=== PATIENT | female | born 2005 | race Two or more races ===

== ENCOUNTER 2024-05-02 00:11 | Emergency (ER) | payer MEDICAID, SELFPAY ==
[2024-05-02 00:12] VITALS: BMI 27.4
[2024-05-02 00:18] VITALS: BP 125/78; PULSE 91; RESP 18; TEMP 37; O2SAT 99
--- NOTE | 2024-05-02 00:26 | XR_ITS ---
Examination: Pelvic ultrasound, transabdominal, complete Technique: Transabdominal ultrasound of the pelvis performed using grayscale imaging Date and time of exam: May 02, 2024 at 0128 hrs. Indications: Onset pelvic pain beginning 2 years ago Findings: Uterus 7.4 cm Endometrial 12 mm No uterine mass or intrauterine gestation Right ovary 2.6 cm arterial flow Left ovary 2.5 cm arterial flow Impression: No uterine mass Negative for ovarian torsion
--- NOTE | 2024-05-02 00:27 | PD.EDRME ---
Rapid Medical Screening Exam RME Arrival date/time: 05/02/24 00:11 18-year-old female presents emergency department complaining of left-sided pelvic pain. Chief Complaint: Abdominal Pain Time Seen by Provider: 05/02/24 00:15 Vital signs: Vital Signs Temperature 98.6 F 05/02/24 00:18 Pulse Rate 91 05/02/24 00:18 Respiratory Rate 18 05/02/24 00:18 Blood Pressure 125/78 05/02/24 00:18 Pulse Oximetry (%) 99 05/02/24 00:18 Oxygen Delivery Method Room Air 05/02/24 00:18 Vital signs reviewed by provider: Yes
[2024-05-02 00:42] LABS: Collection Type, Urine Clean Catch
[2024-05-02 00:55] LABS: Bilirubin,Urine Negative (Negative); Blood,Urine 3+ (Negative); Clarity,Urine Turbid (Clear/Hazy); Color,Urine Yellow (Lt Yel-Yel); Culture Indicated,Urine Yes; Glucose, Urine Negative (Negative); Hyaline Casts,Urine < 1 /hpf (0-1); Ketones,Urine Negative (Negative); Leukocyte Esterase,Urine Negative (Negative); Nitrite,Urine Negative (Negative); Protein,Urine 1+ (Neg - Trace); RBC,Urine 1142 /hpf (0-3); Specific Gravity,Urine 1.036 (1.001-1.035); Squamous Epithelial Cell,Urine 1 /hpf (0-5); Urobilinogen,Urine Negative mg/dL (0.0-1.0); WBC,Urine 11 /hpf (0-5)
[2024-05-02 00:56] LABS: Basophils % (Auto) 0 % (0-2.5); Eosinophils # (Auto) 0.1 Thou/mm3 (0.0-0.5); Eosinophils % (Auto) 1 % (0-10); Hematocrit 39.3 % (36.0-46.0); Hemoglobin 13.3 g/dL (12.0-16.0); Immature Granulocytes % (Auto) 0 % (0-0); Immature Granulocytes Auto 0.01 Thou/mm3 (0.00-0.00); Lymphocytes # (Auto) 2.4 Thou/mm3 (1.0-5.0); Lymphocytes % (Auto) 35 % (10-50); Mean Corpuscular HGB Conc 33.8 g/dl (31.0-37.0); Mean Corpuscular Hemoglobin 30.1 pg (25.0-35.0); Mean Corpuscular Volume 89 fL (80-100); Monocytes # (Auto) 0.4 Thou/mm3 (0.0-0.8); Monocytes % (Auto) 6 % (0-12); Neutrophils # (Auto) 4.1 Thou/mm3 (1.8-7.7); Neutrophils % (Auto) 58 % (37-80); Nucleated Red Blood Cell % 0 /100 WBC (0); Platelet Count 278 Thou/mm3 (140-440); RDW Standard Deviation 41.5 fL (36.4-46.3); Red Blood Count 4.42 Miln/mm3 (4.00-5.20)
[2024-05-02 01:16] LABS: Alanine Aminotransferase 23 U/L (10-49); Albumin, Serum 4.7 gm/dL (3.5-5.0); Albumin/Globulin Ratio 1.5 (1.2-2.2); Alkaline Phosphatase 64 U/L (46-116); Anion Gap 9 (7-16); Aspartate Amino Transferase 22 U/L (0-34); BUN/Creatinine Ratio 16 Ratio (12-20); Bilirubin,Total 0.3 mg/dL (0.3-1.2); Blood Urea Nitrogen 11 mg/dL (9-23); Calcium 9.6 mg/dL (8.3-10.6); Calcium (Corrected) 9.6 mg/dL (8.5-10.1); Chloride 107 mMol/L (98-107); Creatinine (Component) 0.7 mg/dL (0.6-1.3); Estimated Creatinine Clearance 116.9 mL/min (>60); Globulin 3.2 gm/dL (2.3-3.5); Glucose 90 mg/dL (74-106); Lipase 37 U/L (12-53); Osmolality,Calculated 278 (275-295); Potassium 3.5 mMol/L (3.4-5.1); Sodium 140 mMol/L (136-145); Total Protein 7.9 gm/dL (5.7-8.2); eGFR > 60 See Note
[2024-05-02 01:21] LABS: HCG,Qualitative Serum Negative
[2024-05-02] MEDS: KETOROLAC INJ 60 MG/2 ML VIAL 30 MG IM (01:46)
--- NOTE | 2024-05-02 03:33 | PRELIM_ITS ---
Pelvic ultrasound (transabdominal). May 02, 2024 0128 hours Clinical history: Left flank pain Technique: Real-time, grayscale, transabdominal pelvic ultrasound was performed using Duplex scanning including arterial inflow, venous outflow, color and spectral Doppler. Comparison: No prior study is available for comparison. Findings: The uterus measures 7.4 x 3.7 x 4.4 cm. The endometrium measures 1.24 cm. The right ovary measures 2.6 x 1.7 x 2 cm and is unremarkable. The left ovary measures 2.5 x 1.7 x 2.1 cm and is unremarkable. Both ovaries demonstrate color flow and spectral waveforms on Doppler evaluation. There is no adnexal mass. There is no free fluid on the submitted images. Impression: No sonographic evidence of ovarian torsion is demonstrated on the submitted images. Report Electronically Signed By: Jarett Baird 05/02/2024 3:33:10 AM [EST]
--- NOTE | 2024-05-02 03:49 | EDNOTE_ITS ---
ED Abdominal Pain RME/HPI General Chief Complaint: Abdominal Pain Stated complaint: LEFT LOWER ABDOMEN PAIN Time seen by provider: 05/02/24 00:15 Arrival date/time: 05/02/24 00:11 18-year-old female presents emergency department complaining of left-sided pelvic pain. Patient also endorses vaginal bleeding and reports may be starting her menstrual cycle. Patient denies any fever, chills, vomiting, diarrhea, or any other associated symptom. Source: patient Mode of arrival: ambulatory Limitations: no limitations RME / HPI RME / HPI narrative: 05/02/24 00:11 18-year-old female presents emergency department complaining of left-sided pelvic pain. Related Data Previous Rx's ?Medication ?Instructions ?Recorded ibuprofen 600 mg tablet 600 mg PO Q8H PRN pain #20 t abs 05/02/24 Allergies Allergy/AdvReac Type Severity Reaction Status Date / Time No Known Allergies Allergy Verified 05/02/24 00:14 Review of Systems Review of Systems Systems Reviewed: All systems reviewed, normal except as documented Constitutional Constitutional: Reports system reviewed and no additional complaints, except as documented, Denies body ache(s), Denies chills and Denies fever(s) Eyes Eyes: Reports system reviewed and no additional complaints, except as documented and Denies change in vision ENT Ears, Nose, Mouth, and Throat: Reports system reviewed and no additional complaints, except as documented, Denies disequilibrium, Denies dizziness, Denies sore throat and Denies vertigo Cardiovascular Cardiovascular: Reports system reviewed and no additional complaints, except as documented, Denies chest pain and Denies dyspnea Respiratory Respiratory: Reports system reviewed and no additional complaints, except as documented, Denies chest congestion, Denies cough and Denies dyspnea Gastrointestinal Gastrointestinal: Reports system reviewed and no additional complaints, except as documented, Denies abdominal pain, Denies nausea and Denies vomiting Genitourinary Genitourinary: Reports pelvic pain Musculoskeletal Musculoskeletal: Reports system reviewed and no additional complaints, except as documented, Denies abnormal gait and Denies arthralgias Integumentary/Breasts Skin/Breast: Reports system reviewed and no additional complaints, except as documented, Denies erythema, Denies rash and Denies wounds Neurologic Neurologic: Reports system reviewed and no additional complaints, except as documented, Denies abnormal gait, Denies disequilibrium, Denies dizziness and Denies vertigo Past Medical History Social History SMOKING STATUS: Never smoker ED Exam General Limitations: Present no limitations Course Quality Measures none Orders Category Date Time Status US pelvic complete Stat Exams 05/02/24 00:26 Taken CBC Stat Lab 05/02/24 00:35 Completed CMP [Comprehensive Metabolic Panel] Stat Lab 05/02/24 00:35 Completed HCG,Qualitative Serum Stat Lab 05/02/24 00:35 Completed Lipase Stat Lab 05/02/24 00:35 Completed Urinalysis, C/S if Indicated Stat Lab 05/02/24 00:35 Completed Urine Culture Stat Lab 05/02/24 00:35 Received Ketorolac Inj [Toradol Inj] Med 05/02/24 01:27 Discontinued 30 mg IM X1 ONE Vital Signs Vital signs: Vital Signs Temperature 98.6 F 05/02/24 00:18 Pulse Rate 91 05/02/24 00:18 Respiratory Rate 18 05/02/24 00:18 Blood Pressure 125/78 05/02/24 00:18 Pulse Oximetry (%) 99 05/02/24 00:18 Oxygen Delivery Method Room Air 05/02/24 00:18 99% room air within normal limits Abdominal Pain MDM MDM Narrative MDM Narrative:: 18-year-old female presents emergency department complaining of left-sided pelvic pain. Patient also endorses vaginal bleeding and reports may be starting her menstrual cycle. Patient denies any fever, chills, vomiting, diarrhea, or any other associated symptom. CBC was unremarkable for any leukocytosis or anemia. CMP was unremarkable as well. Urinalysis did show blood and urine possibly from patient and her menstrual cycle with no leukocytes and negative for nitrates with no bacteria patient is asymptomatic will not treat. Patient denies dysuria. Ultrasound pelvic findings as written and report: no sonographic evidence of ovarian torsion is demonstrated on the submitted images. There is no adnexal mass. Both ovaries demonstrate color flow and spectral waveforms on Doppler evaluation. There is no free fluid on the submitted images. Patient appears nontoxic and is hemodynamically stable. Patient instructed to have close follow-up with primary care provider and return to emergency department for any worsening symptoms or as needed. Patient data External records reviewed:: None Clinical information provided by:: patient and family Social determinants that could affect healthcare access:: none Patient has the following chronic illnesses:: None How is presenting disease/condition affected by chronic disease/condition?: no chronic disease Evaluation data The following diagnostics were reviewed and interpreted by me:: lab results and radiology exam(s) Lab and/or radiology exams considered but not ordered:: Ordered Interpretation Summary: Interpreted by me Medications / Prescriptions Medications or Prescriptions considered but not ordered:: Ordered Medication administrations:: Medication Administration History Discontinued Medications Ketorolac Tromethamine (Ketorolac Inj 60 Mg/2 Ml Vial) 30 mg IM X1 ONE Stop: 05/02/24 01:28 Last Admin: 05/02/24 01:46 Dose: 30 mg Documented By: CVL Given Consultations Consultation(s) initiated? (list below): No Diagnosis Differential diagnosis abdominal pain: abdominal pain, acute appendicitis, calculus of kidney, constipation, diverticulitis, endometriosis, gastroenteritis, pancreatitis, small bowel obstruction and other (Pelvic mass, ovarian torsion, pelvic inflammatory disease) Most likely diagnosis given after review of the tests above:: Pelvic pain Admission Indicated Admission indicated?: not indicated Admission Request Was there a request for admission?: No Disposition Plan Disposition Plan: Discharge Discharge Attestation Discharge Attestation: The patient and all family members were given an opportunity to ask questions and understood the discharge instructions. Discharge instructions specifically effects, indications for sooner follow up or return to the emergency department, and the expected course of current diagnosis. Patient condition: Stable Discharge Plan Plan Patient Disposition: HOME (Self Care) Disposition Comment: Stable Prescriptions/Referrals Prescriptions/Med Rec: New ibuprofen 600 mg tablet 600 mg PO Q8H PRN (Reason: pain) Qty: 20 0RF Referrals: No Primary/Family,Physician [Primary Care Provider] - In 1 week Problem List Clinical Impression: Pelvic pain Patient/Caregiver Discharge Instructions Discharge Activity: activity as tolerated Education Materials: ED Abdominal Pain Unkn Cause Fem, ED Pelvic Pain, Unknown Cause Additional Instructions: Drink plenty of fluids and stay hydrated. Close follow-up with primary care provider in 2 to 3 days and request referral to [facility] if symptoms persist. Return immediately to emergency department for any worsening symptoms or as needed. Print Language: Persian Stand Alone Forms: Rylee Award Info., Patient Portal Info Letter PA/RAIL DETECTOR CAR OPERATOR Supervising Physician PA/RAIL DETECTOR CAR OPERATOR Supervising Physician: Dr. Hinojosa
== END 2024-05-02 04:24 | disposition home or self-care (01) ==
PROVIDERS: Emergency Provider Emergency Medicine
DX: R10.2 Pelvic and perineal pain (principal)
CPT/HCPCS: 36415; 76856; 80053; 81001; 83690; 84703; 85025; 87086; 96372; 99284; J1885